=== PATIENT | female | born 1955 | race Caucasian/White ===

== ENCOUNTER 2023-07-16 01:05 | Emergency (ER) | payer MEDICARE, OTHER, SELFPAY ==
[2023-07-16] VITALS (7 sets, daily range): BP systolic 146–160; BP diastolic 61–88
[2023-07-16 01:51] LABS: % Basophils 0.4 % (0-2); % Eosinophils 0.6 % (0-6); % Immature Granulocytes 0.3 % (0-0.5); % Lymphocytes 12.7 % (20.5-51.1); % Monocytes 6.7 % (1.7-9.3); % Neutrophils 79.3 % (42.2-75.2); Absolute Eosinophils 0.1 10^3/uL (0-0.7); Absolute Lymphocytes 1.4 10^3/uL (1.2-3.4); Absolute Monocytes 0.7 10^3/uL (0.1-0.6); Absolute Neutrophils 8.5 10^3/uL (1.4-6.5); Hematocrit 35.5 % (37.0-47.0); Hemoglobin 12.3 g/dL (12.0-16.0); Mean Corp Hgb Conc. 34.6 g/dL (33.0-37.0); Mean Corpuscular Hgb 28.5 pg (27.0-31.0); Mean Corpuscular Volume 82.4 fL (81.0-99.0); Mean Platelet Volume 10.1 fL (7.4-10.4); Nucleated Red Blood Cells % 0 %; Platelet Count 233 10^3/uL (130-400); Red Blood Cell Count 4.31 10^6/uL (4.20-5.40); Red Cell Dist. Width 12.9 % (11.5-14.5); White Blood Cell Count 10.7 10^3/uL (4.8-10.8)
--- NOTE | 2023-07-16 02:06 | ED.GENMED ---
History of Present Illness
General
Chief Complaint: Chest Pain
Time Seen by Provider: 07/16/23 02:06
Travel History
Have you had any contact with someone who has COVID-19?: No
Do you have any symptoms of coronavirus? Fever > 100 degrees, chills, cough, shortness of breath, sore throat, loss of taste or smell, muscle aches, or headache?: No
History of Present Illness
History of Present Illness:
HPI: Patient presents due to chest discomfort. It was relatively abrupt in onset that started about 8 hours ago. Her symptoms worsen when she takes deep breath. We also talked about her tachycardia and she tells me that her resting heart rate is
usually around 95-100. She thinks she forgot to take her Cardizem today. She does not have any shortness of breath.
EXAM:
GENERAL: Well appearing in no distress
HEENT: Moist oral mucosa
CARDIOVASCULAR: No murmurs, normal heart rate and rhythm, No chest wall tenderness however each time I had the patient sit forward, she had dramatically worse pain
PULMONARY: No respiratory distress, breath sounds are clear and equal
ABDOMEN: Soft with no peritoneal signs, no tenderness
NEUROLOGIC: Excellent strength all extremities, no coordination deficits
PSYCHIATRIC: Appropriate mental status, normal insight and judgement
EXTREMITIES: Nontender, no edema, moves all extremities equally
SKIN: No rash, no lesions
ED COURSE:
3:30 AM: I initially evaluated patient
NUMBER AND COMPLEXITY OF PROBLEMS ADDRESSED AT THE ENCOUNTER
� Chronic conditions affecting care: History of asthma, history of esophageal spasm, history of mantle cell lymphoma
� Acute Exacerbation and/or Progression of Chronic Illness:
� Differential Diagnosis includes: Chest wall pain, pericarditis however there is no rub on exam, PE unlikely as she has no shortness of breath
AMOUNT AND/OR COMPLEXITY OF DATA TO BE REVIEWED AND ANALYZED
� I performed an independent evaluation of and my interpretation is:
EKG: Sinus 131, normal axis, nonspecific ST abnormality
CT: I personally reviewed CT imaging and see no evidence for PE and I also reviewed radiologist interpretation
X-rays:
Laboratory Studies: CBC, chemistries, troponin all normal
Other:
� Review of other/old records: In 2013, the patient had varicose vein surgery
� Clinical information was obtained by an independent historian: I spoke to the at bedside
� Prescriptions/Medications Considered but not given:
� Further testing considered but not performed:
RISK OF COMPLICATIONS AND/OR MORBIDITY OR MORTALITY OF PATIENT MANAGEMENT
� Social determinants of health affecting care: Lives at home
� Discussion with other providers:
� Escalation of care including admission/observation vs risk of discharge considered: The patient had abrupt onset chest discomfort described as tightness however EKG and troponin after 5 hours of symptoms are both negative. She
has no shortness of breath but due to the ongoing tachycardia I do have some concern for PE. Will premedicate and obtain CTA. She currently needs to feel significantly improved compared to prior. On reassessment at 5:30 AM, the patient continues
to spontaneously improved. She has not had any recent significant chest discomfort. She feels comfortable with going home prefers to go home at this time. She is known to Dr. Ignacio and I have asked her to follow-up with him as well.
Phy Exam
Physical Exam
Physical Exam:
See HPI
Scores
Heart Score for Chest Pain Patients
STEMI patient?: Not applicable
Course
Orders/Labs/Results
Orders:
Orders
07/16/23 01:09
Electrocardiogram (*1) Urgent
Reason for Study: Chest Pain
Cardiac Monitoring- Treatment ONCE
EKG- Treatment ONCE
IV Insert/Care/Rem.- Treatment PRN
O2 Therapy [RESP] Urgent
Titrate/Wean O2 to maintain O2 sat greater than (%): 90
Special Instructions: Maintain sats >/=90%
Pulse Ox/spot Check [RESP] Urgent
Quantity: 1
Special Instructions: ON ROOM AIR
07/16/23 01:44
Complete Blood Count/With Diff Urgent
Comprehensive Metabolic Panel Urgent
Troponin I Urgent
07/16/23 03:27
Diltiazem Extended Release [Cardizem Cd] 180 mg PO NOW STA
Diphenhydramine [Benadryl] 50 mg IV NOW STA
MethylPREDNISolone PF [Solu-Medrol Pf] 125 mg IV NOW STA
07/16/23 03:28
CT Chest Pe Study Urgent
Comment:
Reason For Exam: abrupt chest pain, eval for PE, tachycardia
0.9% Sodium Chloride 1000 ml [Nss] 1,000 ml IV BOLUS
Abnormal Lab Results
07/16/23
01:44
Hct 35.5 L %
(37.0-47.0)
Absolute Neuts (auto) 8.5 H 10^3/uL
(1.4-6.5)
Absolute Monos (auto) 0.7 H 10^3/uL
(0.1-0.6)
Neutrophils % 79.3 H %
(42.2-75.2)
Lymphocytes % 12.7 L %
(20.5-51.1)
Glucose 152 H mg/dl
(70-99)
07/16/23 01:44
07/16/23 01:44
Vital Signs
Initial and Last Documented VS:
Initial Vital Signs
Temp Pulse Resp BP Pulse Ox
99.6 F 130 18 157/85 99
07/16/23 01:20 07/16/23 01:20 07/16/23 01:20 07/16/23 01:20 07/16/23 01:20
Last Documented Vital Signs
Temp Pulse Resp BP Pulse Ox
99.6 F 128 24 155/88 98
07/16/23 01:20 07/16/23 04:00 07/16/23 04:00 07/16/23 04:00 07/16/23 04:00
*Critical Care Note
Total Time (30-74mins, 75-104mins- exclusive of procedures): Not Applicable
ED Attending Note
-
Portions of this chart may have been created with voice recognition software.� Occasional wrong word or��sound alike� substitutions may have occurred due to the inherent limitations of voice recognition software.
Discharge Plan
Departure
Patient Disposition: Home (Routine Discharge)
Date of Disposition: 07/16/23
Time of Disposition: 05:24
Patient with high blood pressure during this ER visit?: Yes
Discharge Problem:
Chest pain
Instructions: Chest Pain CBC Follow Up
Referrals:
Ginger Jara MD [Family Provider] -
Activity Restrictions/Additional Instructions:
The cause of your earlier pain is unclear. The EKG shows no sign of a heart attack but does show a high heart rate. We did give a dose of Cardizem. The cardiac blood test shows no sign of heart attack. CAT scan of the chest was obtained as your
heart rate remained elevated but it shows no sign of blood clot. I recommend you also follow-up Dr. Ignacio and their group should call you to arrange close follow-up. Return here if worse.
Interventions
Interventions:
ED- Cardiac Assessment Last Done: 07/16/23 02:15
[2023-07-16 02:13] LABS: ALT (SGPT) 17 U/L (0-35); AST (SGOT) 18 U/L (14-36); Alkaline Phosphatase 114 U/L (38-126); Blood Urea Nitrogen 12 mg/dl (7-17); Calcium 9.3 mg/dl (8.4-10.2); Carbon Dioxide 27 mmol/L (22-30); Chloride 100 mmol/L (98-107); Glucose 152 mg/dl (70-99); Potassium 3.9 mmol/L (3.5-5.1); Sodium 138 mmol/L (135-145); Total Bilirubin 0.5 mg/dl (0.2-1.3); Total Protein 6.7 g/dl (6.3-8.2); eGFR > 60.00
[2023-07-16 02:17] LABS: Troponin I < 0.012 ng/ml
[2023-07-16] MEDS: BENADRYL 50 MG IV (03:39)
[2023-07-16] MEDS: SOLU-MEDROL PF 125 MG IV (03:39)
[2023-07-16] MEDS: CARDIZEM CD 180 MG PO (03:39)
[2023-07-16] MEDS: NSS 1000 IV (03:40)
== END 2023-07-16 06:29 | disposition home or self-care (01) ==
LOC: EMR 01:05
PROVIDERS: Emergency Medicine; EMERGENCY PHYSICIAN Emergency Medicine; FAMILY PHYSICIAN Internal Medicine
DX: R07.89 Other chest pain (principal); R00.0 Tachycardia, unspecified; Z88.1 Allergy status to other antibiotic agents; Z88.2 Allergy status to sulfonamides; Z88.8 Allergy status to other drugs, medicaments and biological substances
CPT/HCPCS: 99285; 96361; 96374; 96375; 71275; 80053; 84484; 85025; 93005; Q9967

== ENCOUNTER → 2023-07-28 13:44 | Outpatient (REF) | payer MEDICARE, OTHER, SELFPAY ==
[2023-07-28 15:30] LABS: % Basophils 0.5 % (0-2); % Eosinophils 1.5 % (0-6); % Immature Granulocytes 0.2 % (0-0.5); % Lymphocytes 29.9 % (20.5-51.1); % Monocytes 5.4 % (1.7-9.3); % Neutrophils 62.5 % (42.2-75.2); Absolute Basophils 0.1 10^3/uL (0-0.2); Absolute Eosinophils 0.1 10^3/uL (0-0.7); Absolute Lymphocytes 2.8 10^3/uL (1.2-3.4); Absolute Monocytes 0.5 10^3/uL (0.1-0.6); Absolute Neutrophils 5.9 10^3/uL (1.4-6.5); Hematocrit 37.7 % (37.0-47.0); Hemoglobin 12.8 g/dL (12.0-16.0); Mean Corpuscular Hgb 28.3 pg (27.0-31.0); Mean Corpuscular Volume 83.4 fL (81.0-99.0); Mean Platelet Volume 10.9 fL (7.4-10.4); Nucleated Red Blood Cells % 0 %; Platelet Count 231 10^3/uL (130-400); Red Blood Cell Count 4.52 10^6/uL (4.20-5.40); Red Cell Dist. Width 13.1 % (11.5-14.5); White Blood Cell Count 9.4 10^3/uL (4.8-10.8)
[2023-07-28 15:48] LABS: ALT (SGPT) 19 U/L (0-35); AST (SGOT) 20 U/L (14-36); Albumin 4.2 g/dl (3.5-5.0); Alkaline Phosphatase 115 U/L (38-126); Blood Urea Nitrogen 16 mg/dl (7-17); Calcium 9.7 mg/dl (8.4-10.2); Carbon Dioxide 25 mmol/L (22-30); Chloride 101 mmol/L (98-107); Glucose 97 mg/dl (70-99); Iron 86 ug/dl (37-170); Potassium 4.3 mmol/L (3.5-5.1); Sodium 137 mmol/L (135-145); Total Bilirubin 0.5 mg/dl (0.2-1.3); Total Protein 6.9 g/dl (6.3-8.2); eGFR > 60.00
[2023-07-28 16:26] LABS: TSH 1.45 uIU/ml (0.47-4.68)
[2023-07-28 16:30] LABS: Ferritin 89.3 ng/ml (11.1-264.0)
== END ==
LOC: HWLAB 13:44
PROVIDERS: ATTENDING PHYSICIAN Nurse Practitioner
DX: R07.89 Other chest pain (principal); R00.0 Tachycardia, unspecified; C81.90 Hodgkin lymphoma, unspecified, unspecified site
CPT/HCPCS: 36415; 80053; 82728; 83540; 84443; 85025

== ENCOUNTER → 2024-12-19 11:29 | Outpatient (REF) | payer MEDICARE, OTHER, SELFPAY ==
[2024-12-19 16:13] LABS: Magnesium 2.2 mg/dl (1.6-2.3); Uric Acid 5.6 mg/dl (2.5-6.2)
[2024-12-19 16:32] LABS: Free T4 1.49 ng/dl (0.78-2.19); Vitamin D, 25-OH*** 37.6 ng/mL (30-80)
[2024-12-19 16:46] LABS: TSH 1.82 uIU/ml (0.47-4.68)
[2024-12-19 17:05] LABS: Vitamin B12 326 pg/ml (239-931)
[2024-12-22 02:57] LABS: Insulin, Random 8 uIU/mL
[2024-12-22 07:24] LABS: Lipoprotein a (Lp a) <6 mg/dL (<=29)
== END ==
LOC: HWLAB 11:29
PROVIDERS: ATTENDING PHYSICIAN Internal Medicine; FAMILY PHYSICIAN Internal Medicine
DX: E66.09 Other obesity due to excess calories (principal); E03.8 Other specified hypothyroidism; I10 Essential (primary) hypertension; D86.0 Sarcoidosis of lung; K76.0 Fatty (change of) liver, not elsewhere classified; E88.810 Metabolic syndrome; E04.1 Nontoxic single thyroid nodule; E78.2 Mixed hyperlipidemia; R20.0 Anesthesia of skin; Z79.899 Other long term (current) drug therapy; R73.03 Prediabetes
CPT/HCPCS: 36415; 80061; 82306; 82607; 83036; 83525; 83695; 83704; 83735; 84439; 84443; 84550

== ENCOUNTER → 2025-03-05 08:10 | Outpatient (REF) | payer MEDICARE, OTHER, SELFPAY | LOC: RAD 08:10 | PROVIDERS: ATTENDING PHYSICIAN Nurse Practitioner; FAMILY PHYSICIAN Internal Medicine | DX: C50.911 Malignant neoplasm of unspecified site of right female breast (principal) | CPT/HCPCS: 78306; A9503 ==